=== PATIENT | male | born 1995 | race Caucasian/White ===

== ENCOUNTER 2017-12-09 00:48 | Emergency (ER) | payer OTHER ==
[~2017-12-09] VITALS: Ht 162.6 cm; Wt 62.6 kg
[2017-12-09 00:50] VITALS: BP 138/91
[2017-12-09] MEDS ORDERED: LIDOCAINE 1%-EPI 1:100K, 30ML ONE ×2 (01:13→02:10)
[2017-12-09] MEDS ORDERED: OXYcodone/APAP 5/325MG TABLET PO ONE (02:00)
[2017-12-09] MEDS ORDERED: OXYcodone/APAP 5/325MG TABLET ONE (02:07)
== END 2017-12-09 02:25 | disposition home or self-care (01) ==
LOC: ED 02:03
DX: K91.840 Postprocedural hemorrhage of a digestive system organ or structure following a digestive system procedure (principal); Y83.8 Other surgical procedures as the cause of abnormal reaction of the patient, or of later complication, without mention of misadventure at the time of the procedure; Y92.89 Other specified places as the place of occurrence of the external cause
CPT/HCPCS: 99282; 99283